=== PATIENT | female | born 1995 | race Caucasian/White ===

== ENCOUNTER 2016-07-07 00:11 | Day surgery (SDC) | payer OTHER ==
[~2016-07-07] VITALS: Ht 172.7 cm; Wt 104.5 kg
[2016-07-07] VITALS (10 sets, daily range): BP systolic 102–133; BP diastolic 60–79; PULSE 84–95; RESP 13–15; O2SAT 94–97
[2016-07-07] MEDS ORDERED: WARF7.5T4 PO (09:37)
[2016-07-07] MEDS ORDERED: WARF10TA4 PO (09:37)
[2016-07-07] MEDS ORDERED: IRON1TAB97 PO (09:40)
[2016-07-07 09:53] LABS: BASOPHILS % (AUTO) 0.3 % (0-3); EOSINOPHILS % (AUTO) 2.4 % (0-5); MONOCYTES % (AUTO) 5.9 % (4-12); Mean Corpuscular Hemoglobin 28.4 pg (27.0-35.0); Mean Corpuscular Volume 83.5 fL (81-100); NEUTROPHILS % (AUTO) 63.6 % (40-74); Platelet Count 300 bil/L (150-400)
--- NOTE | 2016-07-07 09:53 | NUR ---
Admit note: Patient ambulates into department. Her questions are answered and IV's X 2 started. Labs are drawn.
[2016-07-07] MEDS ORDERED: Heparin 1,000 Unit/mL 10 mL Inj ONE (10:00)
[2016-07-07] MEDS ORDERED: 0.9% Sodium Chloride 1,000 ML ONE (10:00)
--- NOTE | 2016-07-07 10:04 | NUR ---
R radial 2+. R arm is warm and pink. She denies numbness or pain.
[2016-07-07] MEDS ORDERED: fentaNYL-PF 50 mCg/mL 2 mL Inj ONE (10:33)
--- NOTE | 2016-07-07 11:55 | DRSVH ---
PROCEDURE: 1. Selective right subclavian venography. 2. Conscious sedation x42 minutes. INDICATIONS: Right upper extremity DVT. COMPARISON: None. TECHNIQUE: Informed, written consent from the patient was obtained prior to the procedure. Patient wa s brought to the angiography suite, and conscious sedation was administered intravenously by assisted staff, while continuous cardiorespiratory monitoring was performed. Maximal sterile barrier t echnique, hand hygiene and skin preparation were followed. A mask, sterile gown, sterile gloves, a la rge sterile sheet, hand hygiene, and 2% chlorhexidine or iodine was utilized for skin antisepsis. The right groin was prepped and draped sterilely, and the skin and subcutaneous tissues overlying the ri ght common femoral vein were infused with lidocaine. The right common femoral vein was accessed anteg rade with a micropuncture set. A 4 Kosovan sheath was advanced, through which a 4 Kosovan Vert catheter was advanced over Glidewire into the right subclavian vein, which was selectively injected for right subclavian venography. The catheter and sheath were removed and pressure was applied for hemostasis. FLUOROSCOPY TIME: 9.7 minutes FINDINGS: There is severe chronic stenosis of the right lateral and mid subclavian vein. Multiple cho rrounding collateral veins are present. IMPRESSION: 1. 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 This would be amenable to percutaneous endovascu lar therapy, but surgical options should also be explored, and discussed with the patient. Dictated by: Jah Jiang M.D. on 07/07/2016 at 11:44 Approved by: Jah Jiang M.D. on 07/07/2016 at 11:54
--- NOTE | 2016-07-07 13:46 | NUR ---
Received/Recovery/Discharge Received from [facility] lab at 1120. Right groin without bleeding or hematoma, denies pain, VSS. Groin precautions reviewed and verbalized understanding. Refused po initially but later took without difficulty. Bedrest complete at 1320. No change in assessment. Ambulated in [place] and to bathroom without changes. Discharge instructions given, see sheets, verbalizes understanding. IVs discontinued intact. Discharged ambulatory with family and all belongings in no distress at 1340.
== END 2016-07-07 23:59 | disposition home or self-care (01) ==
LOC: SOUO 00:11
PROVIDERS: ATTEND Radiology Diagnostic Radiology
DX: I87.1 Compression of vein (principal); Z86.711 Personal history of pulmonary embolism; Z79.01 Long term (current) use of anticoagulants